=== PATIENT | female | born 1985 | race Caucasian/White ===

== ENCOUNTER 2018-05-07 23:09 | Emergency (ER) | payer SELFPAY ==
[2018-05-07] MEDS ORDERED: Tdap Vaccine 0.5 ml Vial (10-64 yrs) IM ONE (23:45)
[2018-05-07] MEDS ORDERED: Lidocaine 1% Inj (20ml) IJ ONE (23:45)
--- NOTE | 2018-05-07 23:48 | ED PDOC ---
HPI: Wound Care - HPI Time Seen by Provider: 05/07/18 23:16 Chief Complaint (Nursing): Abnormal Skin Integrity Chief Complaint (Provider): left hand 3rd digit laceration History Per: Patient History Of Present Illness: 33 y/o female presents for evaluation of laceration to left hand 3rd digit sustained prior to arrival. Patient states she picked up a broken olive oil bottle while cooking. Denies numbness/weakness left upper extremity, limitation of movement. Last tetanus unknown Past Medical History Reviewed: Historical Data, Nursing Documentation, Vital Signs Vital Signs: Last Vital Signs Temp 98.3 F 05/07/18 23:12 Pulse 76 05/07/18 23:12 Resp 17 05/07/18 23:12 BP 129/91 H 05/07/18 23:12 Pulse Ox 99 05/07/18 23:12 - Medical History PMH: Asthma - Surgical History Other surgeries: liposuction. breast augmentation - Family History Family History: States: Unknown Family Hx - Living Arrangements Living Arrangements: With Family - Immunization History Hx Tetanus Toxoid Vaccination: Yes Hx Influenza Vaccination: No Hx Pneumococcal Vaccination: No - Home Medications Home Medications: Ambulatory Orders Medication Instructions Recorded Naproxen [Naprosyn] 500 mg PO Q12H #20 tab 09/13/15 DiphenhydrAMINE [Benadryl] 25 mg PO BID #10 cap 12/24/15 Famotidine [Pepcid] 20 mg PO BID #10 tab 12/24/15 predniSONE [Prednisone] 40 mg PO DAILY #6 tab 12/24/15 - Allergies Allergies/Adverse Reactions: Allergies Allergy/AdvReac Type Severity Reaction Status Date / Time Penicillins Allergy RASH Verified 12/24/15 16:51 Review of Systems ROS Statement: Except As Marked, All Systems Reviewed And Found Negative Musculoskeletal: Positive for: Hand Pain (left hand 3rd digit) Physical Exam - Reviewed Nursing Documentation Reviewed: Yes Vital Signs Reviewed: Yes - Physical Exam Appears: Positive for: Well, Non-toxic, No Acute Distress Extremity: Positive for: Normal ROM, Capillary Refill (<2 sec b/l UE), Other ( 2cm laceration distal palmar left hand 3rd digit. + bleeding. Distal NV/motor intact) Neurologic/Psych: Positive for: Alert, Oriented. Negative for: Motor/Sensory Deficits - ECG O2 Sat by Pulse Oximetry: 99 - Other Rad xray left hand 3rd digit X-Ray: Viewed By Nd X-Ray Interpretation: no acute findings Procedure: Wound Repair - Time Performed Time Performed: 00:20 - Time Out Time Out: Side verified, Site verified, Patient ID confirmed, Sterile procedures obs. - Consent Obtained Consent obtained: Verbal - Performed by Performed by: Mid-level Provider - Indications Indication(s):: Laceration - Location Location:: Left Finger:: Middle Shape:: Linear Dimensions Length cm: 2cm Dimensions width cm: 0.2cm Depth:: Epidermis - Anesthetic Technique Local/Regional Anesthetic:: Lidocaine 1% - Debris Debris:: None - Irrigated Irrigated with ml of normal saline: 200mL - Complexity Complexity:: Simple (one layer) - Wound repair method Sutures:: # (3), Size (5'0), Type (nonabsorbable), Technique (interrupted) - Muscle repiar layer closed with Muscle repair layer closed with:: Abx ointment applied, Dressing applied ( finger splint applied), Tetanus ordered Medical Decision Making Medical Decision Making: Patient educated on wound care, advised suture removal 7-8 days. Return precautions given. Disposition - Clinical Impression Clinical Impression: Finger laceration - Patient ED Disposition Is Patient to be Admitted: No Counseled Patient/Family Regarding: Studies Performed, Diagnosis, Need For Followup - Disposition Disposition: Routine/Home Disposition Time: 00:38 Condition: STABLE Instructions: Laceration Repair Forms: [employer] (L[place]ian)
[2018-05-07 23:51] VITALS: BP 129/91; PULSE 76; RESP 17; TEMP 98.3; O2SAT 99
[2018-05-08] MEDS ORDERED: Tdap Vaccine 0.5 ml Vial (10-64 yrs) IM ONE (00:46)
--- NOTE | 2018-05-08 10:50 | RAD ---
Date of service: 05/07/2018 PROCEDURE: Left middle finger radiographs. HISTORY: laceration from glass, distal COMPARISON: Left hand radiographs dated 09/13/2015. TECHNIQUE: AP radiograph of the left hand, as well as spot oblique and lateral images of left middle finger were obtained. FINDINGS: LEFT MIDDLE FINGER: Left middle finger normal, without fracture of focal lesion. Remainder of the left hand (as seen on the AP view) is grossly unremarkable. JOINTS: Normal. SOFT TISSUES: Soft tissue laceration along the palmar aspect of the distal 3rd digit. No radiopaque foreign body. OTHER FINDINGS: None. IMPRESSION: Soft tissue laceration on the palmar aspect of the distal 3rd digit. No radiopaque foreign body or evidence of osseous injury.
== END 2018-05-08 01:19 | disposition home or self-care (01) ==
LOC: H.ER 23:09
DX: S61.213A Laceration without foreign body of left middle finger without damage to nail, initial encounter (principal); W25.XXXA Contact with sharp glass, initial encounter; Y92.89 Other specified places as the place of occurrence of the external cause; Z88.0 Allergy status to penicillin

== ENCOUNTER 2018-05-16 23:46 | Emergency (ER) | payer SELFPAY ==
[2018-05-17 00:08] VITALS: TEMP 98
--- NOTE | 2018-05-17 00:47 | ED PDOC ---
HPI: Allergic Reaction Time Seen by Provider: 05/17/18 00:15 Chief Complaint (Nursing): Abnormal Skin Integrity History Per: Patient History/Exam Limitations: no limitations Additional Complaint(s): 33 yo F reports 4 day h/o red itchy rash to her perioral area and R cheek. Reports initially she believed it was a fungal infection and has been applying lotrimin without improvement and the rash is now also present to the anterior neck. Otherwise patient reports (-) throat swelling, (-) tongue / lip swelling, (-) dyspnea, (-) cough, (-) wheezing, (-) abdominal pain, (-) nausea (-) vomiting, (-) fever, (-) joint pain, (-) recent illness. There has been no exposure to known allergens, no changes to soaps/lotions, no new food/ medications. The patient has no history of allergic reactions, eczema. Past Medical History Vital Signs: Last Vital Signs Temp 98.0 F 05/17/18 00:05 Pulse 68 05/17/18 00:05 Resp 18 05/17/18 00:05 BP 115/81 05/17/18 00:05 Pulse Ox 98 05/17/18 00:05 - Medical History PMH: Asthma - Family History Family History: States: Unknown Family Hx - Immunization History Hx Tetanus Toxoid Vaccination: Yes Hx Influenza Vaccination: No Hx Pneumococcal Vaccination: No - Home Medications Home Medications: Ambulatory Orders Medication Instructions Recorded Naproxen [Naprosyn] 500 mg PO Q12H #20 tab 09/13/15 DiphenhydrAMINE [Benadryl] 25 mg PO BID #10 cap 12/24/15 Famotidine [Pepcid] 20 mg PO BID #10 tab 12/24/15 predniSONE [Prednisone] 40 mg PO DAILY #6 tab 12/24/15 Cetirizine HCl [Zyrtec] 10 mg PO DAILY #30 capsule 05/17/18 Hydrocortisone Kaye 0.2% Cr 1 ea TP BID #15 tube 05/17/18 [[facility]] - Allergies Allergies/Adverse Reactions: Allergies Allergy/AdvReac Type Severity Reaction Status Date / Time Penicillins Allergy RASH Verified 05/17/18 00:05 Review of Systems Constitutional: Negative for: Fever, Malaise ENT: Negative for: Mouth Swelling, Throat Pain Cardiovascular: Negative for: Chest Pain, Palpitations Respiratory: Negative for: Cough, Shortness of Breath Gastrointestinal: Negative for: Nausea, Vomiting Skin: Positive for: Rash. Negative for: Lesions Physical Exam - Physical Exam Comments: GENERAL APPEARANCE: Patient is awake, alert, oriented x3 in no acute distress. Breathing is easy and unlabored, speaking in full sentences. SKIN: (+) erythematous rash to the R cheek and periorbital area, (-) excoriations, (-) drainage, (-) crusting of lesions is present. HENT: (-) conjunctival injection, (-) chemosis. Oropharynx: clear (-) tongue or lip swelling, (-) tonsillar exudates, (-) erythema. Airway: patent (-) stridor, (-) hoarseness. Mucous membranes moist. Nares: Patent (-) rhinorrhea. NECK: (-) lymphadenopathy, (-) tenderness. CARDIOVASCULAR: Normal rate and rhythm, (-) murmur, (-) gallop. CHEST: (-) rales, (-) wheezing, (-) dyspnea, (-) stridor. Breath sounds equal bilaterally. ABDOMEN: Soft. (-) tenderness, (-) distention, (-) HSN. NEURO: Mental status: Patient is alert, oriented, and with normal strength and tone. - ECG O2 Sat by Pulse Oximetry: 98 - Progress ED Course And Treament: Patient instructed to follow-up with pmd or referral provided in 1-2 days without fail. Advised to take medication as prescribed. Return to the emergency room at any time for any new or worsening symptoms. Patient states she fully agrees with and understands discharge instructions. States that she agrees with the plan and disposition. Verbalized and repeated discharge instructions and plan. I have given the patient opportunity to ask any additional questions. Disposition - Clinical Impression Clinical Impression: Contact dermatitis - Patient ED Disposition Is Patient to be Admitted: No Counseled Patient/Family Regarding: Studies Performed, Diagnosis, Need For Followup, Rx Given - Disposition Referrals: Antoni Denny MD [Staff Provider] - Disposition: Routine/Home Disposition Time: 00:45 Condition: STABLE Additional Instructions: Thank you for letting us take care of you today. You were treated for facial rash, likely contact dermatitis. The emergency medical care you received today was directed towards the acute presenting symptoms. If you were prescribed any medication, please fill it and give as directed. It may take several days for your symptoms to resolve. Return to the Emergency Department at any time if symptoms worsen, do not improve, or if any other problems arise. Please contact your doctor in 2 days for re-evaluation and follow up / or call one of the physicians/clinics you have been referred to that are listed on the Patient Visit Information form that is included in your discharge packet. Bring any paperwork you were given at discharge with you along with any medications to your follow up visit. Our treatment cannot replace ongoing medical care by a primary care provider (PCP) outside of the emergency department. Thank you for allowing the [facility] team to be part of your care today. Prescriptions: Cetirizine HCl [Zyrtec] 10 mg PO DAILY #30 capsule Hydrocortisone Kaye 0.2% Cr [Westcort] 1 ea TP BID #15 tube Instructions: Contact Dermatitis (DC) Forms: [employer] (Scottish)
[2018-05-17 00:58] VITALS: BP 127/72; PULSE 78; RESP 16
[2018-05-17 04:32] VITALS: O2SAT 98
== END 2018-05-17 01:00 | disposition home or self-care (01) ==
LOC: H.ER 23:46
DX: L25.9 Unspecified contact dermatitis, unspecified cause (principal); J45.909 Unspecified asthma, uncomplicated; Z88.0 Allergy status to penicillin